=== PATIENT | male | born 1950 | race Caucasian/White ===

== ENCOUNTER 2016-10-30 07:27 | Emergency (ER) | payer MEDICARE, OTHER ==
[2016-10-30] MEDS ORDERED: Ketorolac INJ* 60 MG/2 ML VIAL IM ONE (07:45)
--- NOTE | 2016-10-30 08:22 | RAD ---
HISTORY: Trauma, right-sided rib pain COMPARISONS: None VIEWS: 7, frontal dual-energy views of the chest, with frontal and oblique views of the right hemithorax FINDINGS: There is a nondisplaced fracture of the right eighth rib. There is no appreciable pneumothorax. The lung volumes are low. IMPRESSION: RIGHT EIGHTH RIB FRACTURE. NO APPRECIABLE PNEUMOTHORAX
[2016-10-30] MEDS ORDERED: HYDROcodone/ACETAMIN 5-325 MG* 1 TAB PO ONE (09:42)
[2016-10-30 10:44] VITALS: BP 120/76
--- NOTE | 2016-10-30 14:47 | ED ---
Jack Ram Billy, scribed for Carl Rush MD on 10/30/16 at 0802 . HPI Chest Pain - HPI Summary HPI Summary: Patient is a 65 year-old male coming to [facility] for evaluation of constant right- sided ribcage pain since last night. He states that he was showering when he slipped on a bar of soap and fell. Pain severity 7/10 at this time, non- radiating. Pain is worse with deep palpation. He denies any abdominal pain. Denies any CP, SOB, nausea, or vomiting. - History of Current Complaint Chief Complaint: EDChestWallPain Time Seen by Provider: 10/30/16 07:39 Hx Obtained From: Patient Onset/Duration: Started Hours Ago, Still Present Timing: Constant Initial Severity: Moderate Current Severity: Moderate Pain Intensity: 7 Pain Scale Used: 0-10 Numeric Chest Pain Location: Right Anterior Chest Pain Radiates: No Character: Other: - ribcage pain Aggravating Factor(s): Other: - deep palpation Alleviating Factor(s): Nothing Associated Signs and Symptoms: Negative: Chest Pain, Shortness of Breath, Nausea , Abdominal Pain, Vomiting - Allergy/Home Medications Allergies/Adverse Reactions: Allergies Allergy/AdvReac Type Severity Reaction Status Date / Time No Known Allergies Allergy Verified 10/30/16 08:42 PMH/Surg Hx/FS Hx/Imm Hx Endocrine/Hematology History: Reports: Hx Diabetes Cardiovascular History: Reports: Hx Hypercholesterolemia, Hx Hypertension Musculoskeletal History: Reports: Other Musculoskeletal History - osteopenia Infectious Disease History: No Infectious Disease History: Denies: Traveled Outside the [place] in Last 30 Days - Family History Known Family History: Positive: Cardiac Disease, Hypertension, Diabetes - Social History Alcohol Use: None Hx Substance Use: No Substance Use Type: Reports: None Hx Tobacco Use: No Smoking Status (MU): Never Smoked Tobacco Review of Systems Negative: Chest Pain Negative: Shortness Of Breath Negative: Abdominal Pain, Vomiting, Diarrhea, Nausea Positive: Other - right-sided ribcage pain All Other Systems Reviewed And Are Negative: Yes Physical Exam - Summary Physical Exam Summary: VITAL SIGNS: Reviewed. GENERAL: Patient is an obese male who is lying comfortable in the stretcher. Patient is not in any acute respiratory distress. HEAD AND FACE: No signs of trauma. No ecchymosis, hematomas or skull depressions. No sinus tenderness. EYES: PERRLA, EOMI x 2, No injected conjunctiva, no nystagmus. EARS: Hearing grossly intact. Ear canals and tympanic membranes are within normal limits. MOUTH: Oropharynx within normal limits. NECK: Supple, trachea is midline, no adenopathy, no JVD, no carotid bruit, no c- spine tenderness, neck with full ROM. CHEST: Symmetric, positive right rib cage tenderness at palpation LUNGS: Clear to auscultation bilaterally. No wheezing or crackles. CVS: Regular rate and rhythm, S1 and S2 present, no murmurs or gallops appreciated. ABDOMEN: Soft, non-tender. possitive chronic distention. No rebound no guarding , and no masses palpated. Bowel sounds are normal. EXTREMITIES: FROM in all major joints, no edema, no cyanosis or clubbing. NEURO: Alert and oriented x 3. No acute neurological deficits. Speech is normal and follows commands. SKIN: Dry and warm Triage Information Reviewed: Yes Vital Signs On Initial Exam: Initial Vitals Temp Pulse Resp BP Pulse Ox 98.1 F 113 16 127/81 97 10/30/16 07:30 10/30/16 07:30 10/30/16 07:30 10/30/16 07:30 10/30/16 07:30 Vital Signs Reviewed: Yes Diagnostics - Vital Signs Vital Signs Temp Pulse Resp BP Pulse Ox 10/30/16 07:30 98.1 F 113 16 127/81 97 - Laboratory Lab Statement: Any lab studies that have been ordered have been reviewed, and results considered in the medical decision making process. - Radiology Ribs XR Radiology Interpretation Completed By: Radiologist - RIGHT EIGHTH RIB FRACTURE. NO APPRECIABLE PNEUMOTHORAX Re-Evaluation - Re-Evaluation First Eval Re-Evaluation Time: 09:44 Change: Improved Chest Pain Course/Dx - Course Assessment/Plan: Patient is a 65 year-old male coming to [facility] for evaluation of constant right-sided ribcage pain since last night. He states that he was showering when he slipped on a bar of soap and fell. Pain severity 7/10 at this time, non-radiating. Pain is worse with deep palpation. He denies any abdominal pain. Denies any CP, SOB, nausea, or vomiting. Ribs XR shows a fracture of the right 8th rib without any appreciable pneumothorax. In the ED course, patient was given Toradol and [place] for pain, with improvement. He was instructed to follow up with his PCP. He will be discharged home with Naproxen and [place] for pain management. He understands and agrees. Patient is A&Ox3, hemodynamically stable. I discussed all the findings and test results with the patient. Patient was instructed to return to the emergency room immediately if any of the symptoms return or worsens. Plan of care was discussed with the patient and understands and agrees. All questions were answered at patient satisfaction. There were no further complaints or concerns. Lung exam before discharge: CTA B /L. Good air exchange. No wheezing or crackles heard. CVS: S1 and S2 present. No murmurs appreciated. Patient is alert and oriented x 3. Patient is hemodynamically stable. 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 - Chest Pain Differential Diagnosis/HQI/PQRI: Acute AK, ACS, Angina, CHF, Chest Wall, GI Disease, Lower Respiratory Infection, Other: - Arrythmia - Diagnoses Provider Diagnoses: Rib fracture Discharge - Discharge Plan Condition: Stable Disposition: HOME Prescriptions: HYDROcodone/ACETAMIN 5-325 MG* [[place] 5-325 TAB*] 1 tab PO Q8H PRN #12 tab MDD max 4 tabs /day PRN Reason: Pain Naproxen TAB* [Naprosyn TAB*] 500 mg PO Q8H PRN #20 tab PRN Reason: Pain Patient Education Materials: Rib Fracture (ED) Referrals: [facility] [Outside] The documentation as recorded by the Jack dupont Billy accurately reflects the service I personally performed and the decisions made by me, Carl Rush MD.
== END 2016-10-30 10:40 | disposition home or self-care (01) ==
LOC: ED 07:27
DX: S22.31XA Fracture of one rib, right side, initial encounter for closed fracture (principal); W19.XXXA Unspecified fall, initial encounter; Y93.9 Activity, unspecified; Y92.89 Other specified places as the place of occurrence of the external cause
CPT/HCPCS: 99282; J1885

== ENCOUNTER 2018-09-01 11:15 | Emergency (ER) | payer OTHER, MEDICARE ==
[2018-09-01] MEDS ORDERED: NS 0.9% 1000 ML* 1,000 ML IV ONE (12:09)
[2018-09-01 12:11] LABS: ABS Basophils 0 10^3/ul (0-0.2); ABS Eosinophils 0.1 10^3/ul (0-0.6); ABS Lymphocytes 2.5 10^3/ul (1.0-4.8); ABS Monocytes 1.3 10^3/ul (0-0.8); ABS Nucleated RBC 0 10^3/ul; Eosinophil % 1.1 %; Hematocrit 43 % (42-52); Lymphocyte % 20.9 %; Mean Corpuscular HGB Conc 33 g/dl (31-36); Mean Corpuscular Hemoglobin 28 pg (27-31); Mean Corpuscular Volume 87 fL (80-94); Mean Platelet Volume 8.4 fL (7.4-10.4); Nucleated Red Blood Cells % 0.1; Platelet Count 267 10^3/ul (150-450); Red Blood Count 4.94 10^6/ul (4.00-5.40); Red Cell Distribution Width 14 % (10.5-15)
[2018-09-01 12:28] LABS: Albumin 4.2 g/dL (3.2-5.2); Albumin/Globulin Ratio 1.4 (1-3); BUN/Creatinine Ratio 14.6 (8-20); Calcium 9.2 mg/dL (8.6-10.3); EGFR Non-African American 58.9 (>60); Globulin 2.9 g/dL (2-4); Potassium 4.2 mmol/L (3.5-5.0); Total Bilirubin 0.6 mg/dL (0.2-1.0); Total Protein 7.1 g/dL (6.4-8.9)
--- NOTE | 2018-09-01 12:28 | ED ---
Abdominal Pain/Male - HPI Summary HPI Summary: The patient is a 67 y/o M presenting to [facility] with a chief complaint of sudden onset diarrhea at 18:00 last night with associated diffuse abd pain. He states that he had five episodes of watery diarrhea before going to bed last night, and his symptoms have become milder today, but he is still not feeling well. The pain is currently rated 4/10 in severity. He additionally c/o chills that have resolved, occasional right anterior CP with palpation, nausea, decreased appetite, and one episode of weakness in the left leg that resolved quickly. He denies fevers, diaphoresis, hematochezia, vomiting, dizziness, and lightheadedness. He has hx of diabetes, which he controls with insulin and Metformin. FHx of diabetes. - History of Current Complaint Chief Complaint: EDGeneral Stated Complaint: GENERAL ILLNESS Time Seen by Provider: 09/01/18 11:53 Hx Obtained From: Patient Onset/Duration: Sudden Onset, Lasting Hours - since 1800 last night Timing: Lasting Hours Severity Initially: Moderate Severity Currently: Mild Pain Intensity: 4 Pain Scale Used: 0-10 Numeric Location: Diffuse Radiates: No Character: Dull Aggravating Factor(s): Food Alleviating Factor(s): Nothing Associated Signs And Symptoms: Positive: Other - POSITIVE: chills that have resolved, occasional right anterior CP with palpation, nausea, decreased appetite, one episode of weakness in the left leg that resolved quickly; NEGATIVE: fevers, diaphoresis, hematochezia, vomiting, dizziness, lightheadedness - Allergies/Home Medications Allergies/Adverse Reactions: Allergies Allergy/AdvReac Type Severity Reaction Status Date / Time No Known Allergies Allergy Verified 09/01/18 11:19 Home Medications: Home Medications Aspirin EC TAB* [Ecotrin EC Low Dose 81 MG*] 81 mg PO DAILY 09/01/18 [History Confirmed 09/01/18] Atorvastatin* [Lipitor*] 20 mg PO DAILY 09/01/18 [History Confirmed 09/01/18] Cholecalciferol TAB* [Vitamin D TAB*] 5,000 units PO DAILY 09/01/18 [History Confirmed 09/01/18] Dextrose [Glucose] 16 gm PO DAILY PRN 09/01/18 [History Confirmed 09/01/18] Insulin ASPART (NF) [Novolog (NF)] 0 units SUBCUT TID AC 09/01/18 [History Confirmed 09/01/18] Insulin Degludec [Tresiba Flextouch U-200] 130 units SUBCUT DAILY 09/01/18 [ History Confirmed 09/01/18] Liraglutide [Victoza] 1.8 mg SUBCUT DAILY 09/01/18 [History Confirmed 09/01/18] Lisinopril TAB* [Prinivil TAB*] 40 mg PO DAILY 09/01/18 [History Confirmed 09/01] Pantoprazole TAB * [Protonix TAB *] 40 mg PO QAM 09/01/18 [History Confirmed 06/10] dilTIAZem HCl [Diltiazem 24Hr ER] 180 mg PO DAILY 09/01/18 [History Confirmed ] metFORMIN* [Glucophage 1000 MG TAB *] 1,000 mg PO BID 09/01/18 [History Confirmed 09/01/18] PMH/Surg Hx/FS Hx/Imm Hx Endocrine/Hematology History: Reports: Hx Diabetes Cardiovascular History: Reports: Hx Hypercholesterolemia, Hx Hypertension Musculoskeletal History: Reports: Other Musculoskeletal History - osteopenia - Surgical History Surgery Procedure, Year, and Place: n/a Infectious Disease History: No Infectious Disease History: Denies: Traveled Outside the [place] in Last 30 Days - Family History Known Family History: Positive: Cardiac Disease, Hypertension, Diabetes - Social History Alcohol Use: None Hx Substance Use: No Substance Use Type: Reports: None Hx Tobacco Use: No Smoking Status (MU): Never Smoked Tobacco Do You Chew or Dip Tobacco: No Have You Chewed or Dipped Tobacco in the LAST YEAR: No Review of Systems Positive: Chills - resolved. Negative: Fever, Skin Diaphoresis Negative: Erythema Negative: Sore Throat Positive: Chest Pain - right anterior with palpation Negative: Shortness Of Breath, Cough Positive: Abdominal Pain - diffuse, Diarrhea - watery, Nausea, Other - POSITIVE : decreased appetite; NEGATIVE: hematochezia. Negative: Vomiting Negative: dysuria, hematuria Negative: Myalgia, Edema Negative: Rash Neurological: Other - NEGATIVE: dizziness Positive: Weakness - one episode of left leg weakness that resolved All Other Systems Reviewed And Are Negative: Yes Physical Exam - Summary Physical Exam Summary: Constitutional: Well-developed, Well-nourished, Alert. (-) Distressed Skin: Warm, Dry HENT: Normocephalic; Atraumatic, Dry mucous membranes Eyes: Conjunctiva normal Neck: Musculoskeletal ROM normal neck. (-) JVD, (-) Stridor, (-) Tracheal deviation Cardio: Rhythm regular, rate normal, Heart sounds normal; Intact distal pulses; The pedal pulses are 2+ and symmetric. Radial pulses are 2+ and symmetric. (-) Murmur Pulmonary/Chest wall: Effort normal. (-) Respiratory distress, (-) Wheezes, (-) Rales Abd: Soft, (-) epigastric tenderness, (-) Distension, (-) Guarding, (-) Rebound Musculoskeletal: (-) Edema Lymph: (-) Cervical adenopathy Neuro: Alert, Oriented x3 Psych: Mood and affect Normal Triage Information Reviewed: Yes Vital Signs On Initial Exam: Initial Vitals Temp Pulse Resp BP Pulse Ox 96.4 F 104 20 149/86 97 09/01/18 11:17 09/01/18 11:17 09/01/18 11:17 09/01/18 11:17 09/01/18 11:17 Vital Signs Reviewed: Yes Diagnostics - Vital Signs Vital Signs Temp Pulse Resp BP Pulse Ox 09/01/18 11:17 96.4 F 104 20 149/86 97 - Laboratory Lab Results: Lab Results 09/01/18 Range/Units 12:00 WBC 12.0 H (3.5-10.8) 10^3/ul RBC 4.94 (4.00-5.40) 10^6/ul Hgb 14.0 (14.0-18.0) g/dl Hct 43 (42-52) % MCV 87 (80-94) fL MCH 28 (27-31) pg MCHC 33 (31-36) g/dl RDW 14 (10.5-15) % Plt Count 267 (150-450) 10^3/ul MPV 8.4 (7.4-10.4) fL Neut % (Auto) 67.0 % Lymph % (Auto) 20.9 % [place] % (Auto) 10.6 % Eos % (Auto) 1.1 % Baso % (Auto) 0.4 % Absolute Neuts (auto) 8.0 H (1.5-7.7) 10^3/ul Absolute Lymphs (auto) 2.5 (1.0-4.8) 10^3/ul Absolute Monos (auto) 1.3 H (0-0.8) 10^3/ul Absolute Eos (auto) 0.1 (0-0.6) 10^3/ul Absolute Basos (auto) 0 (0-0.2) 10^3/ul Absolute Nucleated RBC 0 10^3/ul Nucleated RBC % 0.1 Result Diagrams: 09/01/18 12:00 09/01/18 12:00 Lab Statement: Any lab studies that have been ordered have been reviewed, and results considered in the medical decision making process. - Radiology CXR Radiology Interpretation Completed By: Radiologist Summary of Radiographic Findings: Low lung volumes with subsegmental atelectasis. ED physician has reviewed this report. - EKG 1205 Cardiac Rate: NL - 96 BPM EKG Rhythm: Sinus Rhythm Summary of EKG Findings: No STEMI. Re-Evaluation - Re-Evaluation First Eval Re-Evaluation Time: 15:21 Change: Improved Comment: He states he is feeling better. We discussed discharge home. Abdominal Pain Fem Course/Dx - Course Course Of Treatment: The patient is a 67 y/o M presenting to [facility] with a chief complaint of five episodes of sudden onset watery diarrhea at 18:00 last night with associated diffuse abd pain. He additionally c/o chills that have resolved , occasional right anterior CP with palpation, nausea, decreased appetite, and one episode of weakness in the left leg that resolved quickly. He denies fevers , diaphoresis, hematochezia, vomiting, dizziness, and lightheadedness. He has hx of diabetes, which he controls with insulin and Metformin. FHx of diabetes. Upon physical exam, the patient exhibits dry mucous membranes. In the ED course , the patient was given Ns for dehydration. Bloodwork obtained showing elevated glucose. EKG is normal. CXR reveals subsegmental atelectasis. He is feeling better in the ED. His diagnosis is diarrhea. I suspect it is likely viral. He will be sent home with a prescription for Zofran for nausea, education materials , and follow up with PCP in 2-3 days. We also discussed drinking broth or Gatorade to help with dehydration. - Diagnoses Provider Diagnoses: Diarrhea Discharge - Sign-Out/Discharge Documenting (check all that apply): Patient Departure - Patient will be discharged home. - Discharge Plan Condition: Stable Disposition: HOME Prescriptions: Ondansetron ODT TAB* [Zofran 4 MG Odt TAB*] 4 mg PO Q8H PRN #8 tab.odt PRN Reason: Nausea/Vomiting Patient Education Materials: Acute Diarrhea (ED) Referrals: Alexandra Perez [Primary Care Provider] - 3 Days Additional Instructions: Take medications as prescribed. Drink broth or Gatorade like we discussed. Follow up with your primary care provider in 2-3 days. RETURN TO THE EMERGENCY DEPARTMENT FOR CHANGING OR WORSENING SYMPTOMS - Billing Disposition and Condition Condition: STABLE Disposition: Home - Attestation Statements Document Initiated by Kerline: Yes Documenting Scribe: Joselyn Dobbs Provider For Whom Kerline is Documenting (Include Credential): Dr. Thom Montalvo MD Scribe Attestation: Joselyn Ram scribed for Dr. Thom Montalvo MD on 09/01/18 at 1529. Scribe Documentation Reviewed: Yes Provider Attestation: The documentation as recorded by the Joselyn dupont accurately reflects the service I personally performed and the decisions made by , Dr. Thom Montalvo MD Status of [place] Document: Viewed
[2018-09-01 15:37] VITALS: BP 148/92
== END 2018-09-01 15:38 | disposition home or self-care (01) ==
LOC: ED 11:15
DX: R19.7 Diarrhea, unspecified (principal); R53.1 Weakness; R07.9 Chest pain, unspecified; E11.9 Type 2 diabetes mellitus without complications
CPT/HCPCS: 36415; 71046; 80053; 83690; 84484; 85025; 93005; 96360; 96361; 99283

== ENCOUNTER 2020-04-23 17:04 | Inpatient (IN) ==
[2020-04-23] MEDS ORDERED: Iodixanol (CONTRAST) 320 MG/ML 100 ML SDV IV ONE (17:25)
[2020-04-23 17:35] LABS: ABS Basophils 0.1 10^3/ul (0-0.2); ABS Eosinophils 0.1 10^3/ul (0-0.6); ABS Lymphocytes 3.9 10^3/ul (1.0-4.8); ABS Monocytes 1.5 10^3/ul (0-0.8); ABS Neutrophils 10.6 10^3/ul (1.5-7.7); Eosinophil % 0.5 %; Hematocrit 31 % (42-52); Lymphocyte % 24.3 %; Mean Corpuscular HGB Conc 33 g/dL (31-36); Mean Corpuscular Hemoglobin 25 pg (27-31); Mean Corpuscular Volume 76 fL (80-94); Mean Platelet Volume 7.7 fL (7.4-10.4); Platelet Count 464 10^3/uL (150-450); Red Blood Count 4.01 10^6 /uL (4.18-5.48); Red Cell Distribution Width 17 % (10-15); White Blood Count 16.1 10^3/uL (3.5-10.8)
[2020-04-23 17:36] LABS: INR 1.22 (0.82-1.09)
[2020-04-23 17:48] LABS: ALT 12 U/L (7-52); AST 9 U/L (13-39); Albumin 3.8 g/dL (3.2-5.2); Albumin/Globulin Ratio 1.1 (1-3); Alkaline Phosphatase 89 U/L (34-104); Anion Gap 10 mmol/L (2-11); BUN/Creatinine Ratio 20.2 (8-20); Blood Urea Nitrogen 23 mg/dL (6-24); C Reactive Protein 131.12 mg/L (<8.01); CO2 Carbon Dioxide 27 mmol/L (22-32); Calcium 9.5 mg/dL (8.6-10.3); Chloride 101 mmol/L (101-111); EGFR African American 77.3 (>60); EGFR Non-African American 63.9 (>60); Globulin 3.5 g/dL (2-4); Glucose 195 mg/dL (70-100); Sodium 138 mmol/L (135-145); Total Protein 7.3 g/dL (6.4-8.9)
[2020-04-23 18:01] LABS: Creatine Kinase 37 U/L (10-223)
[2020-04-23 19:08] LABS: Erythrocyte Sed Rate 88 mm/Hr (0-19)
[2020-04-23 19:30] LABS: LDH 153 U/L (140-271); Total Iron Binding Capacity 276 mcg/dL (250-450); Transferrin 197 mg/dL (203-362)
[2020-04-23 19:43] LABS: % Iron Saturation 7 % (15-55); Iron < 20 ug/dL (50-212); Unsaturated Iron Binding < 261 ug/dL
[2020-04-23] MEDS ORDERED: Dextrose 50% Syringe 50 ml 25 GM/50 ML SYRINGE IV PUSH PRN (20:41)
[2020-04-23] MEDS: Enoxaparin 40 MG/0.4 ML SYR SUBCUT SCH (23:40)
[2020-04-24 08:10] LABS: ABS Basophils 0.1 10^3/ul (0-0.2); ABS Eosinophils 0.1 10^3/ul (0-0.6); ABS Lymphocytes 3.6 10^3/ul (1.0-4.8); ABS Monocytes 1.5 10^3/ul (0-0.8); ABS Neutrophils 8.3 10^3/ul (1.5-7.7); Hematocrit 32 % (42-52); Lymphocyte % 26.2 %; Mean Corpuscular HGB Conc 32 g/dL (31-36); Mean Corpuscular Hemoglobin 24 pg (27-31); Mean Corpuscular Volume 77 fL (80-94); Mean Platelet Volume 7.8 fL (7.4-10.4); Platelet Count 404 10^3/uL (150-450); Red Blood Count 4.13 10^6 /uL (4.18-5.48); Red Cell Distribution Width 17 % (10-15); White Blood Count 13.6 10^3/uL (3.5-10.8)
[2020-04-24] MEDS: Insulin GLARGINE 100 un/ml 10 ml VIAL SUBCUT SCH (09:27)
[2020-04-24] MEDS ORDERED: Benzocaine/Menthol LOZ PO PRN (17:22)
[2020-04-24] MEDS ORDERED: Gadoteridol (CONTRAST) 279.3 MG/ML 10 ML IV ONE (19:21)
[2020-04-24] MEDS ORDERED: Iron Sucrose 200 MG in NS 0.9% 100 ml BAG 100 ML IVPB ONE (19:39)
[2020-04-24] MEDS: Enoxaparin 40 MG/0.4 ML SYR SUBCUT SCH (21:37)
[2020-04-24 22:08] LABS: Urine Appearance Clear; Urine Bilirubin Negative (Negative); Urine Blood Negative (Negative); Urine Color Yellow; Urine Glucose 1+(50 mg/dL) (Negative); Urine Ketones Negative (Negative); Urine Nitrite Negative (Negative); Urine Protein Negative (Negative); Urine Specific Gravity 1.018 (1.010-1.030); Urine Urobilinogen Positive (Negative)
[2020-04-25 06:06] LABS: Hematocrit 29 % (42-52); Hemoglobin 9.3 g/dL (14.0-18.0); Mean Corpuscular HGB Conc 33 g/dL (31-36); Mean Corpuscular Hemoglobin 25 pg (27-31); Mean Corpuscular Volume 76 fL (80-94); Mean Platelet Volume 7.5 fL (7.4-10.4); Platelet Count 370 10^3/uL (150-450); Red Blood Count 3.75 10^6 /uL (4.18-5.48); Red Cell Distribution Width 17 % (10-15); White Blood Count 13.1 10^3/uL (3.5-10.8)
[2020-04-25] MEDS: Insulin GLARGINE 100 un/ml 10 ml VIAL SUBCUT SCH (08:41)
[2020-04-25 17:01] VITALS: BP 167/78
== END 2020-04-25 17:20 | disposition home or self-care (01) | DRG 544 ==
LOC: ED 17:04 → MED 21:58
PROVIDERS: ADMIT Internal Medicine; ATTEND Internal Medicine

== ENCOUNTER 2020-07-21 20:13 | Inpatient (IN) ==
[2020-07-21] MEDS ORDERED: NS 0.9% 1000 ml BAG 1,000 ML IV.FLUID IV ONE (20:51)
[2020-07-21 22:21] LABS: ABS Basophils 0.1 10^3/ul (0-0.2); ABS Eosinophils 0.1 10^3/ul (0-0.6); ABS Lymphocytes 1.6 10^3/ul (1.0-4.8); ABS Monocytes 1.3 10^3/ul (0-0.8); ABS Neutrophils 9.3 10^3/ul (1.5-7.7); ABS Nucleated RBC 0.2 10^3/ul; Eosinophil % 1.2 %; Hematocrit 27 % (42-52); Hemoglobin 8.2 g/dL (14.0-18.0); Lymphocyte % 13.1 %; Mean Corpuscular HGB Conc 31 g/dL (31-36); Mean Corpuscular Hemoglobin 24 pg (27-31); Mean Corpuscular Volume 78 fL (80-94); Mean Platelet Volume 7.9 fL (7.4-10.4); Nucleated Red Blood Cells % 1.5; Platelet Count 407 10^3/uL (150-450); Red Blood Count 3.42 10^6 /uL (4.18-5.48); Red Cell Distribution Width 21 % (10-15); White Blood Count 12.4 10^3/uL (3.5-10.8)
[2020-07-21 22:31] LABS: Activated Partial Thrombo Time 29.1 seconds (26.0-38.0); INR 1.33 (0.82-1.09)
[2020-07-21 22:37] LABS: Albumin 2.8 g/dL (3.2-5.2); Albumin/Globulin Ratio 0.8 (1-3); BUN/Creatinine Ratio 19.5 (8-20); C Reactive Protein 242.42 mg/L (<8.01); Calcium 8.4 mg/dL (8.6-10.3); EGFR African American 121.6 (>60); EGFR Non-African American 100.5 (>60); Globulin 3.4 g/dL (2-4); Total Bilirubin 0.4 mg/dL (0.2-1.0); Total Protein 6.2 g/dL (6.4-8.9)
[2020-07-21 22:39] LABS: Troponin I 0.01 ng/mL (<0.03)
[2020-07-21] MEDS ORDERED: cefTRIAXone 1 gm/50 mL NS BAG 1 GM/50 ML BAG IV ONE (23:13)
[2020-07-22] MEDS ORDERED: Ondansetron 4 mg VIAL 2 MG/ML 2 ml VIAL IV PRN (00:51)
[2020-07-22] MEDS ORDERED: Dextrose 50% Syringe 50 ml 25 GM/50 ML SYRINGE IV PUSH PRN (00:51)
[2020-07-22 01:43] LABS: Urine Appearance Clear; Urine Bilirubin Negative (Negative); Urine Blood Negative (Negative); Urine Color Amber; Urine Glucose 3+(>=500 mg/dL) (Negative); Urine Ketones Negative (Negative); Urine Nitrite Negative (Negative); Urine Protein 1+(30 mg/dL) (Negative); Urine Specific Gravity 1.023 (1.010-1.030); Urine Urobilinogen Positive (Negative)
[2020-07-22 01:48] LABS: Urine Bacteria 1+ (Absent); Urine Granular Casts Present (Absent); Urine Red Blood Cell 1+(3-5/hpf) (Absent); Urine Squamous Epithelial Cell Present (Absent); Urine White Blood Cell 3+(>20/hpf) (Absent)
[2020-07-22 03:05] LABS: Influenza A Molecular Negative (Negative); Influenza B Molecular Negative (Negative)
[2020-07-22] MEDS: Heparin 5000 UNITS/ML 1 mL VIAL SUBCUT SCH ×3 (06:03→20:10)
[2020-07-22] MEDS: Polyethylene Glycol 3350 17 GM PACKET PO SCH (09:20)
[2020-07-22] MEDS: Insulin GLARGINE 100 un/ml 10 ml VIAL SUBCUT SCH ×2 (09:27→20:09)
[2020-07-22 11:54] LABS: ABS Basophils 0.1 10^3/ul (0-0.2); ABS Eosinophils 0.1 10^3/ul (0-0.6); ABS Lymphocytes 1.1 10^3/ul (1.0-4.8); ABS Neutrophils 8.3 10^3/ul (1.5-7.7); Eosinophil % 1.3 %; Hematocrit 23 % (42-52); Hemoglobin 7.4 g/dL (14.0-18.0); Lymphocyte % 10.8 %; Mean Corpuscular HGB Conc 32 g/dL (31-36); Mean Corpuscular Hemoglobin 24 pg (27-31); Mean Corpuscular Volume 77 fL (80-94); Mean Platelet Volume 7.6 fL (7.4-10.4); Nucleated Red Blood Cells % 0.1; Platelet Count 340 10^3/uL (150-450); Red Blood Count 3.04 10^6 /uL (4.18-5.48); Red Cell Distribution Width 21 % (10-15); White Blood Count 10.6 10^3/uL (3.5-10.8)
[2020-07-22 12:06] LABS: INR 1.3 (0.82-1.09)
[2020-07-22 12:10] LABS: BUN/Creatinine Ratio 17.6 (8-20); C Reactive Protein 219.13 mg/L (<8.01); Calcium 8.1 mg/dL (8.6-10.3); EGFR African American 140.3 (>60); Potassium 3.9 mmol/L (3.5-5.0)
[2020-07-22] MEDS: NS 0.9% 1000 ml BAG 1,000 ML IV SCH (20:07)
[2020-07-23] MEDS: cefTRIAXone 1 gm/50 mL NS BAG 1 GM/50 ML BAG IVPB SCH (01:52)
[2020-07-23] MEDS: Heparin 5000 UNITS/ML 1 mL VIAL SUBCUT SCH ×3 (05:03→20:38)
[2020-07-23 06:32] LABS: ABS Basophils 0.1 10^3/ul (0-0.2); ABS Eosinophils 0.1 10^3/ul (0-0.6); ABS Lymphocytes 1.4 10^3/ul (1.0-4.8); ABS Monocytes 1.1 10^3/ul (0-0.8); ABS Neutrophils 7.6 10^3/ul (1.5-7.7); Eosinophil % 1.2 %; Hematocrit 22 % (42-52); Hemoglobin 6.8 g/dL (14.0-18.0); Lymphocyte % 13.8 %; Mean Corpuscular HGB Conc 32 g/dL (31-36); Mean Corpuscular Hemoglobin 24 pg (27-31); Mean Corpuscular Volume 77 fL (80-94); Mean Platelet Volume 7.5 fL (7.4-10.4); Platelet Count 320 10^3/uL (150-450); Red Blood Count 2.81 10^6 /uL (4.18-5.48); Red Cell Distribution Width 20 % (10-15); White Blood Count 10.3 10^3/uL (3.5-10.8)
[2020-07-23 06:54] LABS: BUN/Creatinine Ratio 16.7 (8-20); Calcium 7.6 mg/dL (8.6-10.3); EGFR African American 145.2 (>60); Potassium 3.3 mmol/L (3.5-5.0)
[2020-07-23] MEDS: Polyethylene Glycol 3350 17 GM PACKET PO SCH (07:18)
[2020-07-23] MEDS: NS 0.9% 1000 ml BAG 1,000 ML IV SCH (07:23)
[2020-07-23] MEDS: Insulin GLARGINE 100 un/ml 10 ml VIAL SUBCUT SCH ×2 (09:27→20:38)
[2020-07-23] MEDS ORDERED: Potassium Chlor 10 meq TAB PO ONE (17:11)
[2020-07-23 22:52] LABS: Hematocrit 24 % (42-52); Hemoglobin 7.6 g/dL (14.0-18.0)
[2020-07-24] MEDS: cefTRIAXone 1 gm/50 mL NS BAG 1 GM/50 ML BAG IVPB SCH (01:16)
[2020-07-24] MEDS: Heparin 5000 UNITS/ML 1 mL VIAL SUBCUT SCH ×3 (06:32→20:13)
[2020-07-24 08:38] LABS: ABS Basophils 0.1 10^3/ul (0-0.2); ABS Eosinophils 0.2 10^3/ul (0-0.6); ABS Lymphocytes 1.6 10^3/ul (1.0-4.8); ABS Monocytes 1.2 10^3/ul (0-0.8); ABS Neutrophils 8.9 10^3/ul (1.5-7.7); Eosinophil % 1.9 %; Hematocrit 25 % (42-52); Hemoglobin 8.2 g/dL (14.0-18.0); Lymphocyte % 13.2 %; Mean Corpuscular HGB Conc 32 g/dL (31-36); Mean Corpuscular Hemoglobin 25 pg (27-31); Mean Corpuscular Volume 78 fL (80-94); Mean Platelet Volume 7.4 fL (7.4-10.4); Platelet Count 373 10^3/uL (150-450); Red Blood Count 3.25 10^6 /uL (4.18-5.48); Red Cell Distribution Width 21 % (10-15); White Blood Count 12.1 10^3/uL (3.5-10.8)
[2020-07-24 08:52] LABS: BUN/Creatinine Ratio 18.6 (8-20); Calcium 7.8 mg/dL (8.6-10.3); EGFR African American 165.3 (>60); EGFR Non-African American 136.6 (>60); Potassium 3.8 mmol/L (3.5-5.0)
[2020-07-24] MEDS: Insulin GLARGINE 100 un/ml 10 ml VIAL SUBCUT SCH ×2 (09:37→20:12)
[2020-07-24] MEDS: Polyethylene Glycol 3350 17 GM PACKET PO SCH (09:37)
[2020-07-25] MEDS: cefTRIAXone 1 gm/50 mL NS BAG 1 GM/50 ML BAG IVPB SCH (01:39)
[2020-07-25] MEDS: Heparin 5000 UNITS/ML 1 mL VIAL SUBCUT SCH ×2 (05:58→13:50)
[2020-07-25 06:29] LABS: ABS Basophils 0.1 10^3/ul (0-0.2); ABS Eosinophils 0.2 10^3/ul (0-0.6); ABS Lymphocytes 1.5 10^3/ul (1.0-4.8); ABS Monocytes 1.2 10^3/ul (0-0.8); Eosinophil % 1.4 %; Hematocrit 25 % (42-52); Lymphocyte % 12.6 %; Mean Corpuscular HGB Conc 32 g/dL (31-36); Mean Corpuscular Hemoglobin 25 pg (27-31); Mean Corpuscular Volume 80 fL (80-94); Mean Platelet Volume 7.7 fL (7.4-10.4); Platelet Count 372 10^3/uL (150-450); Red Blood Count 3.17 10^6 /uL (4.18-5.48); Red Cell Distribution Width 22 % (10-15); White Blood Count 11.9 10^3/uL (3.5-10.8)
[2020-07-25 07:58] VITALS: BP 134/66
[2020-07-25] MEDS: Insulin GLARGINE 100 un/ml 10 ml VIAL SUBCUT SCH (09:26)
[2020-07-25] MEDS: Polyethylene Glycol 3350 17 GM PACKET PO SCH (09:27)
== END 2020-07-25 15:05 | disposition home health service (06) ==
LOC: ED 20:13 → MED 07-22 00:48
PROVIDERS: ADMIT Hospitalist; ATTEND Internal Medicine